=== PATIENT | female | born 1975 | race Asian ===

== ENCOUNTER 2017-09-13 10:03 | Inpatient (IN) | payer BC ==
[~2017-09-13] VITALS: Ht 157.5 cm; Wt 64.4 kg
--- NOTE | 2017-09-13 10:10 | NUR ---
LUQ PAIN SINCE YESTERDAY, H/O PANCREATITIS, NAD NOTED, VSS, RESP EVEN AND UNLABORED, PT WAS PUT ON MONITOR, WAITING FOR MD GARCIA.
[2017-09-13] MEDS ORDERED: IV NS 0.9% 1,000 ML BAG IV ONE ×3 (11:00→20:30)
[2017-09-13] MEDS ORDERED: ONDANSETRON HCL/PF 4 MG/2 ML VIAL IVP ONE (11:00)
[2017-09-13] MEDS ORDERED: ONDANSETRON HCL/PF 4 MG/2 ML VIAL ONE (11:03)
[2017-09-13] MEDS ORDERED: METOCLOPRAMIDE HCL 10 MG/2 ML VIAL ONE (11:26)
[2017-09-13] MEDS ORDERED: METOCLOPRAMIDE HCL 10 MG/2 ML VIAL IV ONE (11:30)
[2017-09-13 11:34] LABS: BASOPHILS # (AUTO) 0.1 /CMM (0.0-0.2); BASOPHILS % (AUTO) 0.5 % (0.0-2.0); EOSINOPHILS % (AUTO) 3.1 % (0.0-6.0); HEMATOCRIT 43 % (33-45); HEMOGLOBIN 13.9 g/dL (11.5-14.8); LYMPHOCYTES # (AUTO) 1.3 /CMM (0.8-4.8); LYMPHOCYTES % (AUTO) 8.4 % (20.0-44.0); MEAN CORPUSCULAR HEMOGLOBIN 28 PG (26.0-33.0); MEAN CORPUSCULAR HGB CONC 32 g/dl (31.0-36.0); MEAN CORPUSCULAR VOLUME 88 fL (82-100); MONOCYTES # (AUTO) 0.5 /CMM (0.1-1.30); MONOCYTES % (AUTO) 3.3 % (2.0-12.0); NEUTROPHILS # (AUTO) 12.7 /CMM (1.8-8.9); NEUTROPHILS % (AUTO) 84.7 % (43.0-81.0); PLATELET COUNT (AUTO) 337 /CMM (150-450); RDW COEFFICIENT OF VARIATION 14.6 (11.5-15.0); RED BLOOD CELL COUNT(AUTO) 4.93 MIL/uL (4.0-5.2); WHITE BLOOD COUNT (AUTO) 15.1 K/uL (4.3-11.0)
[2017-09-13 11:50] LABS: CALCIUM, SERUM 9.3 mg/dL (8.5-10.1); CARBON DIOXIDE 31 mmol/L (21-32); CHLORIDE 99 mmol/L (98-107); CREATININE 0.9 mg/dL (0.6-1.3); GLUCOSE 222 mg/dL (74-106); POTASSIUM 3.1 mmol/L (3.5-5.1); SODIUM SERUM 135 mmol/L (136-145); UREA NITROGEN, BLOOD 9 mg/dL (7-18)
[2017-09-13 11:50] LABS: AMYLASE 223 U/L (25-115); LIPASE 547 U/L (73-393)
[2017-09-13 11:52] LABS: INR 0.95 (0.85-1.15)
[2017-09-13 11:56] LABS: ALANINE AMINOTRANSFERASE 25 U/L (12-78); ALBUMIN 4.1 g/dL (3.4-5.0); ALCOHOL, BLOOD < 3 mg/dL (0-0); ALKALINE PHOSPHATASE 92 U/L (46-116); ASPARTATE AMINOTRANSFERASE 18 U/L (15-37); BILIRUBIN,DIRECT 0.1 mg/dL (0.0-0.2); BILIRUBIN,TOTAL 0.5 mg/dL (0.2-1.0); TOTAL PROTEIN, SERUM 8.4 g/dL (6.4-8.2)
[2017-09-13 12:07] LABS: SERUM AMMONIA 35 umol/L (11-32)
--- NOTE | 2017-09-13 12:12 | NUR ---
PT TO CTSCAN
[2017-09-13] MEDS ORDERED: HYDROMORPHONE INJ 2 MG/ML DISP.SYRIN ONE ×3 (12:21→19:48)
[2017-09-13] MEDS ORDERED: HYDROMORPHONE INJ 2 MG/ML DISP.SYRIN IV ONE (12:30)
[2017-09-13 12:57] LABS: CHOLESTEROL 220 mg/dL (<200); HDL CHOLESTEROL 54 mg/dL (40-60); LDL 138 mg/dL (0-99); TRIGLYCERIDES 156 mg/dL (30-150)
--- NOTE | 2017-09-13 13:10 | NUR ---
CALLED NURSING STARCHER AND TENTER RANGE FEEDER FOR M/S BED
--- NOTE | 2017-09-13 13:40 | NUR ---
PAGED DR WILFREDO BA FOR PANEL ADMISSION
[2017-09-13] MEDS ORDERED: HYDR-3026 PO (13:43)
[2017-09-13] MEDS ORDERED: PARO40TA4 PO (13:43)
[2017-09-13] MEDS ORDERED: METH500T PO (13:43)
--- NOTE | 2017-09-13 13:46 | NUR ---
PT ASSIGNED 327-2 M/S
--- NOTE | 2017-09-13 13:51 | NUR ---
REPORT GIVEN TO RUDY
--- NOTE | 2017-09-13 15:12 | NUR ---
[facility] NUMBER [phone]
--- NOTE | 2017-09-13 15:13 | NUR ---
SPOKE TO [place] WITH [facility] TRANSFER LINE. PER [place] THERE ARE CURRENTLY NO AVAILABLE BEDS AND HE WILL CALL WHEN A BED IS AVAILABLE - DOES NOT KNOW HOW LONG; PER [place] CAN ADMIT PATIENT IF WE NEED TO, E.G. IF ER IS RUNNING OUT OF SPACE
[2017-09-13] MEDS ORDERED: HYDROMORPHONE INJ 0.5 MG/0.5 ML SYRINGE IV ONE ×2 (15:30→20:00)
--- NOTE | 2017-09-13 15:30 | NUR ---
SPOKE WITH ADMITTING - PATIENT WILL BE TRANSFERRED IN 2-3 HOURS
--- NOTE | 2017-09-13 18:02 | NUR ---
CALLED [facility] TRANSFER [place] AND WAS INFORMED THAT PATIENT IS STILL WAITING FOR A BED
--- NOTE | 2017-09-13 19:32 | NUR ---
PT COMPLAINING OF ULQ PAIN WITH GAURDING. VSS. NO S/S SOB. SKIN PINK, WARM, AND DRY. MD NOTIFIED.
--- NOTE | 2017-09-13 20:03 | NUR ---
BURKE FROM [facility] CALLED. THERE IS A BED AVAILABLE AND WILL BE RELEASED ONCE ER MD SIGNS OUT TO HOSPITALIST.
--- NOTE | 2017-09-13 20:20 | NUR ---
PT IS ACCEPTED AT [facility] RM [id number]. DR DEAN ADMITTING [phone] FOR REPORT
--- NOTE | 2017-09-13 20:27 | NUR ---
MIKE [phone] - [facility]. AUTH#[id number]
--- NOTE | 2017-09-13 20:28 | NUR ---
SPOKE WITH JYOTI AT [facility]. THEY ARE WORKING ON AN ETA AND WILL CALL BACK
--- NOTE | 2017-09-13 21:07 | NUR ---
ATTEMPTED TO GIVE REPORT TO BURKE. INSTRUCTED TO CALL BACK AT [phone]
--- NOTE | 2017-09-13 22:05 | NUR ---
TRANSFER CENTER NOTIFIED OF CHANGE IN CONDITION TO UNSTABLE. DR VAUGHN PAGED FOR DR ALEXIS.
[2017-09-13] MEDS ORDERED: PIPERACILLIN /TAZOBACTAM 3.375 G VIAL IV ONE (22:06)
--- NOTE | 2017-09-13 22:11 | NUR ---
DR ALEXIS SPOKE WITH DR VAUGHN AT [facility] AND DETERMINED PATIENT WILL BE ADMITTED AND IS UNSTABLE FOR TRANSPORT
--- NOTE | 2017-09-13 22:13 | NUR ---
AMBULATED TO BATHROOM WITH STEADY GAIT.
--- NOTE | 2017-09-13 22:22 | NUR ---
PER BURKE AT [facility] TRANSFER [facility]ENTER CALLED EMERGENCY AMBULANCE (AUTH#[id number]) FOR ALS TRANSPORT TO [facility]. EMERGENCY AMBULANCE DOES NOT SERVICE THE [facility] [place] [facility].
--- NOTE | 2017-09-13 22:25 | NUR ---
[facility] WILL CALL - PT UNSTABLE
[2017-09-13] MEDS ORDERED: PIPERACILLIN /TAZOBACTAM 3.375 G in IV D5W 50 ML IV ONE (22:30)
--- NOTE | 2017-09-13 22:45 | NUR ---
PT ASSIGNED [facility] 116-1
--- NOTE | 2017-09-13 22:50 | NUR ---
REPORT GIVEN TO RAINEOdalis RANDHAWA
--- NOTE | 2017-09-13 23:13 | NUR ---
PT TRANSPORTED TO [facility] STABLE CONDITION. VSJoseline. BENSON.
[2017-09-13 23:16] VITALS: BP 94/49
[2017-09-13] MEDS ORDERED: Z GUARD REMEDY 2 OZ OINT TP PRN (23:30)
[2017-09-13] MEDS ORDERED: HYDROCODONE/APAP 5/325MG 1 EACH TABLET PO PRN (23:30)
[2017-09-13] MEDS ORDERED: MAGNESIUM HYDROXIDE 30 ML UDC PO PRN (23:30)
[2017-09-13] MEDS ORDERED: MAG HYDROX/AL HYDROX/SIMETH 30 ML UDC PO PRN (23:30)
[2017-09-13] MEDS ORDERED: ACETAMINOPHEN 325 MG TABLET PO PRN (23:30)
[2017-09-13] MEDS ORDERED: ONDANSETRON HCL/PF 4 MG/2 ML VIAL IVP PRN (23:30)
[2017-09-13] MEDS: IV D5/0.45 NACL 1,000 ML IV PRN (23:32)
--- NOTE | 2017-09-13 23:40 | NUR ---
RN ADMITTING NOTES RECEIVED PATIENT FROM ER, PATIENT IS ALERT AND ORIENTED. AMBULATORY WITH STEADY GAIT. PATIENT REPORTS SHE'S BEEN HAVING LEFT UPPER QUADRANT PAIN FOR ABOUT A WEEK NOW AND HAS WORSENED YESTERDAY THAT PROMPTED HER GOING TO THE ER. ON TIME OF ADMISSION, PATIENT WITH MILD ABDOMINAL PAIN, CRAMPING. ABDOMEN IS ROUNDED, NO PALPABLE TENDERNESS ON SITE, (+) PAIN UPON PALPATION ON LUQ. UPDATED PATIENT WITH PLAN OF CARE. ORIENTED TO UNIT PROTOCOLS. CALL LIGHT KEPT WITHIN REACH. BELONGINGS CHECKED. SKIN IS INTACT. ON CLOSE MONITORING.
[2017-09-13] MEDS: HYDROMORPHONE INJ 2 MG/ML DISP.SYRIN IV PRN (23:56)
[2017-09-14] VITALS (7 sets, daily range): BP systolic 90–106; BP diastolic 47–66
[2017-09-14 00:29] LABS: APPEARANCE,URINE CLEAR (CLEAR); BILIRUBIN,URINE NEGATIVE (NEGATIVE); BLOOD, URINE TRACE-INTA Ery/uL (NEGATIVE); COLOR,URINE YELLOW (YELLOW); KETONES,URINE NEGATIVE (NEGATIVE); LEUKOCYTE ESTERASE ,URINE NEGATIVE (NEGATIVE); NITRITE, URINE NEGATIVE (NEGATIVE); PROTEIN,URINE NEGATIVE (NEGATIVE); UGLUCOSE NEGATIVE (NEGATIVE); UROBILINOGEN,URINE 0.2 EU/dL (0.2)
[2017-09-14 00:39] LABS: BACTERIA,URINE None seen /HPF (None Seen); RBC,URINE 0-2 /HPF (0-2); SQUAMOUS EPITHELIAL CELL,UR Moderate /HPF (None Seen); WBC,URINE 0-2 /HPF (0-3)
[2017-09-14] MEDS ORDERED: POTASSIUM CHLORIDE 10 MEQ/50 ML PREMIXED IVPB FOR PERIPHERAL LINE IV ONE (03:00)
--- NOTE | 2017-09-14 03:17 | NUR ---
RN NOTES CLARIFIED WITH DR. FLORENCE WITH REGARDS TO THE PATIENT'S K REPLACEMENT. ORDER OBTAINED, NOTED AND CARRIED OUT. PATIENT NOTIFIED.
[2017-09-14] MEDS: HYDROMORPHONE INJ 2 MG/ML DISP.SYRIN IV PRN ×5 (03:56→20:40)
[2017-09-14 06:40] LABS: ALBUMIN 2.7 g/dL (3.4-5.0); BILIRUBIN,DIRECT 0.1 mg/dL (0.0-0.2); BILIRUBIN,TOTAL 0.5 mg/dL (0.2-1.0); CALCIUM, SERUM 7.5 mg/dL (8.5-10.1); CREATININE 0.7 mg/dL (0.6-1.3); MAGNESIUM 1.7 mg/dL (1.8-2.4); PHOSPHORUS 3.7 mg/dL (2.5-4.9); POTASSIUM 3.7 mmol/L (3.5-5.1); TOTAL PROTEIN, SERUM 5.9 g/dL (6.4-8.2)
[2017-09-14 06:43] LABS: BASOPHILS % (AUTO) 0.6 % (0.0-2.0); EOSINOPHILS % (AUTO) 7.9 % (0.0-6.0); HEMATOCRIT 31 % (33-45); HEMOGLOBIN 10.4 g/dL (11.5-14.8); LYMPHOCYTES # (AUTO) 1.3 /CMM (0.8-4.8); LYMPHOCYTES % (AUTO) 20.2 % (20.0-44.0); MEAN CORPUSCULAR HEMOGLOBIN 30 PG (26.0-33.0); MEAN CORPUSCULAR HGB CONC 33 g/dl (31.0-36.0); MEAN CORPUSCULAR VOLUME 90 fL (82-100); MONOCYTES # (AUTO) 0.6 /CMM (0.1-1.30); MONOCYTES % (AUTO) 8.5 % (2.0-12.0); NEUTROPHILS # (AUTO) 4.1 /CMM (1.8-8.9); NEUTROPHILS % (AUTO) 62.8 % (43.0-81.0); PLATELET COUNT (AUTO) 224 /CMM (150-450); RDW COEFFICIENT OF VARIATION 14.9 (11.5-15.0); RED BLOOD CELL COUNT(AUTO) 3.47 MIL/uL (4.0-5.2); WHITE BLOOD COUNT (AUTO) 6.5 K/uL (4.3-11.0)
--- NOTE | 2017-09-14 07:07 | NUR ---
RN CLOSING NOTES PATIENT VERBALIZES FEELING MUCH BETTER, LUQ PAIN MANAGED WELL WITH DILAUDID GIVEN PRN. IVF ORDERED, BAG 4 OF 4 OF KCl REPLACEMENT INFUSING. NEEDS ANTICIPATED AND MET. SAFETY AND COMFORT ENSURED. CALL LIGHT IN REACH. WILL ENDORSE ACCORDINGLY FOR CONTINUITY OF CARE.
--- NOTE | 2017-09-14 07:35 | NUR ---
RN NOTE RECEIVED PATIENT ALERT AND ORIENTED X4, SHE IS ABLE TO MAKE THING KNOWN AND VERBALIZE NEEDS. BREATHING EVEN AND UNLABORED WITH NO DISTRESS NOTED. ON SUPERVISOR INTELLIGENCE ANALYST SINUS RHYTHM HR OF 72. PATIENT IS ABLE TO AMBULATE WITH ASSIST. LEFT HAND IV SITE INTACT AND PATENT WITH ONGOING FLUIDS ORDERED. PATIENT REMAINS NPO. ALL SAFETY MEASURES DONE. BED LOW AND LOCKED POSITION. PLACED CALL LIGHT WITHIN REACH. WILL CONTINUE TO MONITOR.
[2017-09-14] MEDS: Magnesium 1GM/D5W 100ML PREMIX 100 ML IV SCH ×2 (09:52→10:55)
--- NOTE | 2017-09-14 12:49 | NUR ---
Visited pt today. Friends at bedside. PT currently on NPO. IVF for hydration. Pt denies nausea or recent weight changes. Pt reports abdominal pain between pain medication dues. Noted MD order to discharge pt today, pending to transfer to [facility] as per pt's insurance company. Provided diet education to pt on low fat diet, given diagnosis of pancreatitis. Pt receptive to diet education and verbalized understanding.
[2017-09-14] MEDS: IV D5/0.45 NACL 1,000 ML IV PRN (15:01)
--- NOTE | 2017-09-14 19:08 | NUR ---
RN NOTE PATIENT REMAINED STABLE THROUGHOUT SHIFT. NO ACUTE CHANGES OR DISTRESS NOTED. PATIENT WAITING TO BE DISCHARGED TO [facility], [facility] WILL NOTIFY ONCE BED IS AVAILABLE. WILL ENDORSE TO NEXT SHIFT TO CONTINUE CONTINUITY OF CARE.
--- NOTE | 2017-09-14 23:43 | NUR ---
RN NOTES RECEIVED PATIENT AWAKE IN BED WATCHING TV WITH NO DISTRESS NOTED. ROOM AIR TOLERATING WELL. BREATHING EVEN AND UNLABORED. ALERT AND ORIENTED X 4. ABLE TO VERBALLY COMMUNICATE NEEDS. COMPLAINED OF GENERALIZED PAIN, DILAUDID 1MG ADMINISTERED WITH RELIEF. VITAL SIGNS WNL. PATIENT FOR TRANSFER TO [facility]. RECEIVED CALL FROM [place]. ROUGH AND TRUEING MACHINE OPERATOR FROM [facility], EXCHNAGE TELEPHONE NUMBER FOR DR FLORENCE AND ACCEPTING HOSPITALIST TO TALK AND ENDORSE PATIENT. NO CHANGE OF CONDITION OF THIS TIME. ENDORSEMENT COMPLETED. CALLED AMBULANCE FOR TRANSPORT. ETA 11:30. [facility] CALLED TO INFORM THAT AMBULANCE IS NOT YET READY TO PICK-UP THE PATIENT. ACCORDING TO THE DISPATCHER THERE WAS AN EMERGENCY CALL. WILL UPDATE SOON THE ETA WILL BE KNOWN.
[2017-09-15] VITALS: BP_SYST 116; BP_SYST 145; BP_DIAS 71; BP_DIAS 89
--- NOTE | 2017-09-15 02:18 | NUR ---
RN NOTES FOLLOWED UP WITH THE AMBULANCE REGARDING ENTERTAINER OR VARIETY ARTIST TIME. DISPATCHER SAID THEY ARE STILL CAUGHT UP WITH THE EMERGENCY. WILL CALL TO INFORM OF THE TIME OF ENTERTAINER OR VARIETY ARTIST. FERMENTATION OPERATOR INFORMED.
--- NOTE | 2017-09-15 02:45 | NUR ---
IMPORT COORDINATION AND PRODUCTION HEAD NOTE WAS NOTIFIED OF THE DELAY IN TRANSPORT FOR THE PATIENT'S TRANSFER TO ACUTE [facility]. [facility] IS EXPECTING THE PATIENT STILL. CALLED [facility] AND ARRANGED ALS TRANSPORT FOR THE PATIENT. TRIP # [id number], ETA OF 1 HOUR. PATIENT MADE AWARE.
[2017-09-15] MEDS: HYDROMORPHONE INJ 2 MG/ML DISP.SYRIN IV PRN (04:12)
--- NOTE | 2017-09-15 04:16 | NUR ---
RN NOTES PATIENT WAS PICKED-UP BY AMBULANCE IN STABLE CONDITION. VITAL SIGNS WNL. ALERT AND ORIENTED. AMBULATORY. VERBAL. ENDORSED TO [facility].
== END 2017-09-15 04:00 | disposition short-term general hospital (02) | DRG 439 ==
LOC: ER 10:07 → TELE-TD 22:51 → MEDSG1 23:22 → TELE-TD 09-14 00:03
PROVIDERS: ADMIT Internal Medicine; ATTEND Internal Medicine
DX: K85.90 Acute pancreatitis without necrosis or infection, unspecified (principal); E87.1 Hypo-osmolality and hyponatremia; E87.6 Hypokalemia; F32.9 Major depressive disorder, single episode, unspecified; F41.9 Anxiety disorder, unspecified; E83.42 Hypomagnesemia; E86.1 Hypovolemia; D64.9 Anemia, unspecified; D72.829 Elevated white blood cell count, unspecified; I95.9 Hypotension, unspecified; R73.9 Hyperglycemia, unspecified
CPT/HCPCS: 36415; 70450-TC; 76705-TC; 80048-TC; 80061-TC; 80076-TC; 80305; 81000-TC; 82140-TC; 82150-TC; 83690-TC; 83735-TC; 84100-TC; 84443-TC; 84703-TC; 85025-TC; 85730-TC; 87081-TC; 87086-TC; A4606; G0480; J1170; J2405; J2543; J2765; J3475; J3480; J3490; J7030; J7060; Z7610